=== PATIENT | female | born 1960 | race Caucasian/White ===

== ENCOUNTER 2024-07-22 08:38 | Outpatient (CLI) | payer OTHER | END 2024-07-22 08:39 | disposition home or self-care (01) | LOC: BICCT 08:38 | PROVIDERS: ATTEND Otolaryngology Otolaryngic Allergy | DX: H90.11 Conductive hearing loss, unilateral, right ear, with unrestricted hearing on the contralateral side (principal); H71.91 Unspecified cholesteatoma, right ear; H74.8X1 Other specified disorders of right middle ear and mastoid | CPT/HCPCS: 70480 ==

== ENCOUNTER 2024-07-29 07:44 | Outpatient (CLI) | payer OTHER | END 2024-07-29 07:45 | disposition home or self-care (01) | LOC: SCSMRI 07:44 | PROVIDERS: ATTEND Otolaryngology Plastic Surgery within the Head & Neck | DX: H71.91 Unspecified cholesteatoma, right ear (principal); H73.91 Unspecified disorder of tympanic membrane, right ear | CPT/HCPCS: 36415; 70553; 76376; 82565 ==